=== PATIENT | female | born 1990 | race African-American/Black ===

== ENCOUNTER 2017-08-29 18:11 | Emergency (ER) | payer OTHER ==
[~2017-08-29] VITALS: Ht 154.9 cm; Wt 46.7 kg
[2017-08-29 18:39] LABS: APPEARANCE CLEAR ((CLEAR)); BILIRUBIN NEGATIVE; BLOOD NEGATIVE; COLOR STRAW ((YELLOW)); GLUCOSE (STRIP) NEGATIVE; KETONES NEGATIVE; LEUKOCYTES NEGATIVE; NITRITE NEGATIVE; PROTEIN (STRIP) NEGATIVE; SPECIFIC GRAVITY 1.009 (1.000-1.030); UCUL ADDED? NO; UROBILINOGEN 0.2 MG/DL (0.2-1.0)
[2017-08-29 19:14] LABS: HEMATOCRIT 37.2 % (36.0-46.0); HEMOGLOBIN 12.9 G/DL (11.9-15.5); MCH 29.9 PG (29.0-34.0); MCHC 34.7 G/DL (30.0-36.0); MCV 86.1 FL (83-99); PLATELET COUNT 206 K/uL (156-360); RBC DIS.WIDTH-CV 11.9 % (11.8-14.6); RBC DIS.WIDTH-SD 37.9 % (39-53); RED BLOOD COUNT 4.32 M/uL (3.80-5.20); WHITE BLOOD COUNT 7.3 K/uL (4.1-10.2)
[2017-08-29 19:29] LABS: ALBUMIN 4.4 g/dL (3.2-4.8); CHLORIDE 104 mEq/L (99-109); POTASSIUM 3.7 mEq/L (3.7-5.4); SODIUM 133 mEq/L (136-147)
[2017-08-29 19:31] LABS: GLUCOSE 103 mg/dL (70-99); TOTAL PROTEIN 7.9 g/dL (6.4-8.3)
[2017-08-29 19:33] LABS: TOTAL BILIRUBIN 0.4 mg/dL (0.0-1.0)
[2017-08-29 19:35] LABS: ALKALINE PHOSPHATASE 45 IU/L (3-129); CREATININE 0.7 mg/dL (0.6-1.3); GFR ESTIMATE (CALCULATED) > 59 mL/min/
[2017-08-29 19:36] LABS: UREA NITROGEN (BUN) 8 mg/dL (9-23)
[2017-08-29 19:37] LABS: AST (GOT) 28 IU/L (2-34)
[2017-08-29 19:38] LABS: ALT (GPT) 18 IU/L (3-49)
[2017-08-29 19:41] LABS: LIPASE 31 U/L (1.0-51.0)
[2017-08-29 20:06] LABS: QUANTITATIVE HCG 26223.4 MIU/ML
[2017-08-29] MEDS ORDERED: ZOFRAN4 MG PO (22:31)
[2017-08-29 22:33] VITALS: BP 139/77
== END 2017-08-29 22:33 | disposition home or self-care (01) ==
LOC: EME 18:11
DX: R10.30 Lower abdominal pain, unspecified (principal); Z33.1 Pregnant state, incidental; Z87.19 Personal history of other diseases of the digestive system
CPT/HCPCS: 76801; 80053; 81003; 83690; 84702; 85027; 99281; 99284

== ENCOUNTER 2017-09-01 15:58 | Emergency (ER) | payer OTHER ==
[~2017-09-01] VITALS: Ht 154.9 cm; Wt 47.1 kg
[~2017-09-01 15:58] MED LIST: ZOFRAN4 MG PO
[2017-09-01 17:00] LABS: HEMATOCRIT 37.2 % (36.0-46.0); HEMOGLOBIN 12.4 G/DL (11.9-15.5); MCH 28.8 PG (29.0-34.0); MCHC 33.3 G/DL (30.0-36.0); MCV 86.3 FL (83-99); PLATELET COUNT 192 K/uL (156-360); RBC DIS.WIDTH-CV 11.8 % (11.8-14.6); RBC DIS.WIDTH-SD 37.7 % (39-53); RED BLOOD COUNT 4.31 M/uL (3.80-5.20); WHITE BLOOD COUNT 7.9 K/uL (4.1-10.2)
[2017-09-01 17:14] LABS: ALBUMIN 4.4 g/dL (3.2-4.8); CHLORIDE 106 mEq/L (99-109); POTASSIUM 3.9 mEq/L (3.7-5.4); SODIUM 134 mEq/L (136-147)
[2017-09-01 17:16] LABS: GLUCOSE 92 mg/dL (70-99)
[2017-09-01 17:17] LABS: TOTAL PROTEIN 7.7 g/dL (6.4-8.3)
[2017-09-01 17:20] LABS: ALKALINE PHOSPHATASE 42 IU/L (3-129); CREATININE 0.6 mg/dL (0.6-1.3); GFR ESTIMATE (CALCULATED) > 59 mL/min/
[2017-09-01 17:21] LABS: UREA NITROGEN (BUN) 7 mg/dL (9-23)
[2017-09-01 17:22] LABS: AST (GOT) 23 IU/L (2-34)
[2017-09-01 17:23] LABS: ALT (GPT) 15 IU/L (3-49)
[2017-09-01 17:24] LABS: TOTAL BILIRUBIN 0.3 mg/dL (0.0-1.0)
[2017-09-01 17:49] LABS: QUANTITATIVE HCG 47988.3 MIU/ML
[2017-09-01 18:22] LABS: APPEARANCE CLEAR ((CLEAR)); BILIRUBIN NEGATIVE; BLOOD NEGATIVE; COLOR STRAW ((YELLOW)); GLUCOSE (STRIP) NEGATIVE; KETONES NEGATIVE; LEUKOCYTES NEGATIVE; NITRITE NEGATIVE; PROTEIN (STRIP) NEGATIVE; SPECIFIC GRAVITY 1.005 (1.000-1.030); UCUL ADDED? NO; UROBILINOGEN 0.2 MG/DL (0.2-1.0)
[2017-09-01 19:45] VITALS: BP 103/75
== END 2017-09-01 19:47 | disposition home or self-care (01) ==
LOC: EME 15:58 → RME 15:58
DX: O26.891 Other specified pregnancy related conditions, first trimester (principal); R10.30 Lower abdominal pain, unspecified; Z3A.01 Less than 8 weeks gestation of pregnancy; Z87.19 Personal history of other diseases of the digestive system; Z87.891 Personal history of nicotine dependence
CPT/HCPCS: 80053; 81003; 84702; 85027; 99281; 99284

== ENCOUNTER 2018-03-11 18:31 | Outpatient (CLI) | payer OTHER ==
[~2018-03-11] VITALS: Ht 154.9 cm; Wt 54.4 kg
[2018-03-11 18:59] VITALS: BP 119/81
[2018-03-11 21:17] VITALS: BP 127/72
[2018-03-11 22:43] LABS: CANDIDA DNA PROBE NEGATIVE; GARDNERELLA DNA PROBE NEGATIVE; TRICHOMONAS DNA PROBE NEGATIVE
== END 2018-03-11 23:10 | disposition home or self-care (01) ==
LOC: LDRP-OP 18:31 → 2WEST 18:34
PROVIDERS: Advanced Practice Midwife
DX: O26.893 Other specified pregnancy related conditions, third trimester (principal); O99.611 Diseases of the digestive system complicating pregnancy, first trimester; K59.00 Constipation, unspecified; Z3A.33 33 weeks gestation of pregnancy
CPT/HCPCS: 59025; 87480; 87510; 87660; G0378; J3105

== ENCOUNTER 2018-03-18 18:28 | Outpatient (CLI) | payer OTHER ==
[2018-03-18 19:15] VITALS: BP 115/67
== END 2018-03-18 18:40 | disposition home or self-care (01) ==
LOC: LDRP-OP 18:28 → 2WEST 18:29 → LDRP-OP 05-26 23:17
DX: O26.893 Other specified pregnancy related conditions, third trimester (principal); R10.32 Left lower quadrant pain; M54.5 Low back pain; Z3A.34 34 weeks gestation of pregnancy
CPT/HCPCS: 59025; G0378

== ENCOUNTER 2018-03-30 17:30 | Outpatient (CLI) | payer OTHER ==
[~2018-03-30] VITALS: Ht 154.9 cm; Wt 57.7 kg
[2018-03-30 17:48] VITALS: BP 118/74
[2018-03-30] MEDS ORDERED: PRENATAL TABLE1 EAC3 PO (18:02)
== END 2018-03-30 19:55 | disposition home or self-care (01) ==
LOC: LDRP-OP 17:30 → 2WEST 17:31 → LDRP-OP 05-26 05:29
DX: O36.8130 Decreased fetal movements, third trimester, not applicable or unspecified (principal); Z3A.35 35 weeks gestation of pregnancy
CPT/HCPCS: 59025; G0378

== ENCOUNTER 2018-04-12 21:38 | Outpatient (CLI) | payer OTHER ==
[~2018-04-12] VITALS: Ht 154.9 cm; Wt 59.9 kg
[~2018-04-12 21:38] MED LIST changes: +PRENATAL TABLE1 EAC3 PO
[2018-04-12 22:00] VITALS: BP 117/71
== END 2018-04-12 23:00 | disposition home or self-care (01) ==
LOC: LDRP-OP 21:38 → 2WEST 21:39 → LDRP-OP 05-26 20:12
DX: O26.893 Other specified pregnancy related conditions, third trimester (principal); Z3A.37 37 weeks gestation of pregnancy
CPT/HCPCS: 59025; G0378